=== PATIENT | male | born 1975 | race Caucasian/White ===

== ENCOUNTER → 2022-01-30 | Outpatient (CLI) | payer OTHER | LOC: KOH-I 11:32 | DX: M51.16 Intervertebral disc disorders with radiculopathy, lumbar region (principal) | CPT/HCPCS: 72148 ==

== ENCOUNTER → 2022-04-07 | Outpatient (CLI) | payer OTHER | LOC: EMI 16:30 | DX: M99.33 Osseous stenosis of neural canal of lumbar region (principal); M51.36 Other intervertebral disc degeneration, lumbar region | CPT/HCPCS: 72148 ==